=== PATIENT | male | born 1945 | race Caucasian/White ===

== ENCOUNTER 2023-08-03 13:18 | Emergency (ER) | payer MEDICARE, OTHER, SELFPAY ==
--- NOTE | 2023-08-03 15:14 | ED.GENMED ---
History of Present Illness
General
Chief Complaint: Musculo-Skeletal Complaint
Source: patient
Exam Limitations: none
Time Seen by Provider: 08/03/23 13:38
Nursing documentation reviewed up to this point in time: agreed with
Travel History
Have you had any contact with someone who has COVID-19?: No
Do you have any symptoms of coronavirus? Fever > 100 degrees, chills, cough, shortness of breath, sore throat, loss of taste or smell, muscle aches, or headache?: No
History of Present Illness
History of Present Illness:
78-year-old male with past medical history of hyperlipidemia presenting to the emergency department today with concerns of left-sided heel discomfort ongoing for the past few days denies specific inciting event. Irritation is down to the posterior
portion of the left heel. He claims that he has had some knee issues and has been following with orthopedics from this and has been favoring the left leg since. Denies fevers nausea vomiting or additional concerns.
Past History
Past History
ED Past Medical History: Asthma, Hypercholesterolemia and Other (Acute influenza with hypoxemia May 2018)
ED Past Surgical History: None
Social History
Tobacco: Non-smoker
Alcohol: None
Drug: None
Personal:
Living: with family
Employment: Retired
Family History
Family History: Other (Several family members with atrial fibrillation); Negative CAD
Review of Systems
Review of Systems
Allergies reviewed?: Yes
All Other Systems: ROS reviewed and negative except as documented in HPI and ROS
Phy Exam
Physical Exam
Physical Exam:
GENERAL: Alert , in no apparent distress
EYE: pupils equal and reactive
NECK: Supple, no significant adenopathy.
ENT: o/p clr, mmm.
CARDIAC: Regular rate and rhythm .
LUNGS: Clear breath sounds bilaterally, no acute respiratory distress, no wheezes/rales/rhonchi
ABDOMEN: Soft, without focal tenderness, no r/g, no cvat
NEUROLOGICAL: Alert and oriented, no focal neuro deficits
SKIN: Warm and dry, skin intact.
MUSCULOSKELETAL: Swelling to the left posterior ankle at the insertion point of the Achilles. Increased discomfort with significant dorsiflexion, well perfused.
PSYCH: Normal and appropriate interaction.
Course
Orders/Labs/Results
Orders:
Orders
08/03/23 13:23
Heel, Left 2 View [CR Heel/os Calcis - Left 2 Vw*] Urgent
Comment:
Reason For Exam: pain
Vital Signs
Initial and Last Documented VS:
Initial Vital Signs
Temp Pulse Resp Pulse Ox
98.2 F 96 18 97
08/03/23 13:21 08/03/23 13:21 08/03/23 13:21 08/03/23 13:21
Last Documented Vital Signs
Temp Pulse Resp Pulse Ox
98.2 F 96 18 97
08/03/23 13:21 08/03/23 13:21 08/03/23 13:21 08/03/23 13:21
MDM/Problems Addressed
MDM/Problems Addressed:
78-year-old male presenting to the emergency department today with concerns of left-sided posterior heel discomfort over the past few days without specific inciting event. Here he has discomfort to the posterior heel at the insertion of the
Achilles. Symptoms appear to be consistent with Achilles tendinopathy. X-ray was read by me and shows a posterior calcaneal bone spur. Patient's ankle was wrapped but otherwise stable for outpatient follow-up return precautions given.
*Critical Care Note
Total Time (30-74mins, 75-104mins- exclusive of procedures): Not Applicable
ED Attending Note
-
Portions of this chart may have been created with voice recognition software.� Occasional wrong word or��sound alike� substitutions may have occurred due to the inherent limitations of voice recognition software.
Discharge Plan
Departure
Patient Disposition: Home (Routine Discharge)
Date of Disposition: 08/03/23
Time of Disposition: 15:14
Patient with high blood pressure during this ER visit?: No
Condition: Good
Covid-19: Not Applicable
Discharge Problem:
Achilles tendinitis, Bone spur of posterior portion of calcaneus
Instructions: Achilles Tendinopathy (DC), Achilles Tendinopathy Exercises
Prescriptions:
New
prednisone 20 mg tablet
40 mg PO DAILY 3 Days Qty: 6 0RF
naproxen 500 mg tablet
500 mg PO BID PRN (Reason: Pain) Qty: 14 0RF
No Action
albuterol sulfate [Ventolin HFA] 90 MCG/PUFF HFA aerosol inhaler
1 puff inhalation DAILY
budesonide-formoterol [Symbicort] 1 PUFF HFA aerosol inhaler
2 puff inhalation R BID
ipratropium-albuterol 3 ML solution for nebulization
3 ml inhalation R Q4HPRN PRN (Reason: shortness of breath) 0RF
amoxicillin-pot clavulanate 1 TABLET tablet
1 tab PO Q12 Qty: 10 0RF
prednisone 10 MG tablet
10 mg PO .TAPER Qty: 50 0RF
Rx Instructions:
Take 40mg daily x5days,
30mg daily x5days, 20mg daily x5days, 10 mg daily x5 days
famotidine 20 MG tablet
20 mg PO BID Qty: 28 0RF
Rx Instructions:
Take 20 mg twice a day for 14 days
ascorbic acid (vitamin C) [Vitamin C] 500 MG tablet
1,000 mg PO BID Qty: 56 0RF
Rx Instructions:
Take 1,000 mg twice a day for 14 days
aspirin 81 MG tablet,chewable
81 mg PO DAILY Qty: 14 0RF
Rx Instructions:
Take 81 mg daily for 14 days
zinc sulfate 220 MG capsule
220 mg PO DAILY Qty: 14 0RF
Rx Instructions:
Take 220 mg daily for 14 days
cholecalciferol (vitamin D3) 1,000 UNITS tablet
2,000 units PO DAILY Qty: 28 0RF
Rx Instructions:
Take 2,000 units daily for 14 days
melatonin 5 MG tablet
5 mg PO HS Qty: 14 0RF
Rx Instructions:
Take 5 mg daily at bedtime for 14 days
prednisone 10 MG tablet
10 mg PO .TAPER Qty: 30 0RF
Rx Instructions:
Take 40mg daily x3days, 30mg daily x3days,
20mg daily x3days, 10mg daily x3days.
Referrals:
Papo Handy MD [Family Provider] -
Kaushal Genao MD [Active] - Follow up in 1 week
Activity Restrictions/Additional Instructions:
You came to the emergency department today with concerns of irritation to the posterior portion of your left heel. This is likely an Achilles tendinopathy. Please rest ice compress and elevate to help with symptoms follow-up closely with
orthopedics. Return to the emergency department for any worsening, new or concerning symptoms.
Interventions
Interventions:
*Risk Screen - Suicide Last Done: 08/03/23 13:21
*General Assessment Last Done: 08/03/23 13:21
*Neglect/Abuse Screening Last Done: 08/03/23 13:21
*ED COVID-19 Vaccine History Last Done: 08/03/23 13:21
Discharge Date and Time
Print Language: [id number]
[2023-08-03] MEDS: DELTASONE 40 MG PO (15:21)
== END 2023-08-03 15:35 | disposition home or self-care (01) ==
LOC: EMR 13:18
PROVIDERS: EMERGENCY PHYSICIAN Emergency Medicine; FAMILY PHYSICIAN Family Medicine
DX: M76.62 Achilles tendinitis, left leg (principal); M77.32 Calcaneal spur, left foot; E78.00 Pure hypercholesterolemia, unspecified; J45.909 Unspecified asthma, uncomplicated
CPT/HCPCS: 99283; 73650

== ENCOUNTER → 2023-09-03 11:29 | Outpatient (REF) | payer MEDICARE, OTHER, SELFPAY | LOC: REG 11:29 | PROVIDERS: ATTENDING PHYSICIAN Nurse Practitioner Family | DX: R05.9 Cough, unspecified (principal); J45.40 Moderate persistent asthma, uncomplicated | CPT/HCPCS: 71046; 87070; 87071; 87205 ==

== ENCOUNTER 2023-09-21 11:23 | Emergency (ER) | payer MEDICARE, OTHER, SELFPAY ==
[2023-09-21 11:25] VITALS: BP 136/76
[2023-09-21 12:08] VITALS: BP 134/73
--- NOTE | 2023-09-21 12:37 | ED.GENMED ---
History of Present Illness
<Carlyn Ramon [employer]ENTING [employer]S INSTRUCTOR - Last Filed: 09/22/23 08:39>
General
Chief Complaint: Breathing Problem
Source: patient
Exam Limitations: none
Time Seen by Provider: 09/21/23 12:13
Nursing documentation reviewed up to this point in time: agreed with
Travel History
Have you had any contact with someone who has COVID-19?: No
Do you have any symptoms of coronavirus? Fever > 100 degrees, chills, cough, shortness of breath, sore throat, loss of taste or smell, muscle aches, or headache?: No
History of Present Illness
History of Present Illness:
78-year-old male with history of asthma, HLD states he has been fighting a cough for the past 3 weeks. Initially saw his PCP Dr. Papo Handy about 2 weeks ago and was put on a prednisone taper and Levaquin x 5 days, Albuterol, started to improve
but then got worse again, saw PCP again one week ago, placed on another prednisone taper which he finished yesterday. Saw PCP again today, no improvement in cough so sent here for evaluation.
Pt states cough non productive but feels gurgling in upper chest and feels if he could cough it up it would help but all that happens is he has this weak cough once or twice then it goes away. This routine occurs every few minutes. He has been
sleeping through the night.
Denies f/c/n/v/d/c. Appetite good.
Past History
<Carlyn Ramon PARENTING SK[employer]S INSTRUCTOR - Last Filed: 09/22/23 08:39>
Past History
ED Past Medical History: Asthma, Hypercholesterolemia and Other (Acute influenza with hypoxemia May 2018)
ED Past Surgical History: None
Social History
Tobacco: Non-smoker
Alcohol: None
Drug: None
Personal:
Living: with family
Employment: Retired
Family History
Family History: Other (Several family members with atrial fibrillation); Negative CAD
Review of Systems
<Carlyn Ramon, PARENTING SKILLS INSTRUCTOR - Last Filed: 09/22/23 08:39>
Review of Systems
Allergies reviewed?: Yes
All Other Systems: ROS reviewed and negative except as documented in HPI and ROS
Constitutional: Denies fever
Respiratory: Reports cough; Denies trouble breathing
Cardiac: Denies chest pain
ABD/GI: Denies abdominal pain or nausea
Musculoskeletal: Reports no symptoms
Skin: Reports no symptoms
Neurological: Reports no symptoms
Phy Exam
<Carlyn V. Day, PARENTING SKILLS INSTRUCTOR - Last Filed: 09/22/23 08:39>
Physical Exam
Physical Exam:
GENERAL: No acute distress. A&Ox3.
CONSTITUTIONAL: Afebrile.
EYES: Clear, conjunctivae normal
ENMT: moist mucus membranes, Pharynx nl
RESPIRATORY: Regular respirations, nonlabored, lungs clear. Coarse junky cough, upper airway gurgling sounds which clear momentarily after 1 or 2-week coughs. Unable to expectorate
CARDIOVASCULAR: Regular rate and rhythm, no murmurs, no rubs.
GI: Soft, nontender, normal BS
MUSCULOSKELETAL: Moves with ease. Well perfused.
SKIN: Warm, dry, pink
PSYCH: Normal mood and affect. Well kept, interactive and appropriate
NEUROLOGIC: Awake, alert and oriented. No focal neurological deficits
Scores
<Carlyn V. Yenny, PARENTING SKILLS INSTRUCTOR - Last Filed: 09/22/23 08:39>
Heart Failure Risk
Heart Failure Risk Score: Not Applicable
Course
<Carlyn V. Day, PARENTING SKILLS INSTRUCTOR - Last Filed: 09/22/23 08:39>
Orders/Labs/Results
Orders:
Orders
09/21/23 11:28
EKG [Electrocardiogram (*1)] Urgent
Reason for Study: Shortness of Breath
EKG- Treatment ONCE
09/21/23 12:23
CR Chest - 2 Views Urgent
Comment:
Reason For Exam: Coughing
09/21/23 12:24
Ipratropium/Albuterol Sulfate [Duoneb] 3 ml INH R NOW STA
09/21/23 12:35
Complete Blood Count/With Diff Urgent
Comprehensive Metabolic Panel Urgent
09/21/23 15:02
COVID-19 Antigen Urgent
Source: Nasal Swab
09/21/23 16:02
D-Dimer Urgent
0.9% Sodium Chloride 1000 ml [Nss] 1,000 ml IV BOLUS
Ondansetron Injectable [Zofran] 4 mg IV NOW STA
09/21/23 17:42
CT Chest W/o Iv Contrast Urgent
Comment:
Reason For Exam: persistent cough
09/21/23 19:33
Amoxicillin 875 mg/Clav 125 mg [Augmentin 875 mg/125 mg] 1 tablet PO NOW STA
Abnormal Lab Results
09/21/23
12:35
WBC 16.4 H 10^3/uL
(4.8-10.8)
RBC 4.38 L 10^6/uL
(4.70-6.10)
MCV 95.4 H fL
(80.0-94.0)
MCH 34.0 H pg
(27.0-31.0)
Abs Immat Gran (auto) 0.2 H 10^3/uL
(0-0.05)
Absolute Neuts (auto) 14.4 H 10^3/uL
(1.4-6.5)
Absolute Lymphs (auto) 0.4 L 10^3/uL
(1.2-3.4)
Absolute Monos (auto) 1.3 H 10^3/uL
(0.1-0.6)
Immature Gran % 1.2 H %
(0-0.5)
Neutrophils % 87.6 H %
(42.2-75.2)
Lymphocytes % 2.7 L %
(20.5-51.1)
Sodium 134 L mmol/L
(135-145)
Glucose 180 H mg/dl
(70-99)
Total Bilirubin 2.2 H mg/dl
(0.2-1.3)
Total Protein 6.2 L g/dl
(6.3-8.2)
09/21/23 12:35
09/21/23 12:35
Vital Signs
Initial and Last Documented VS:
Initial Vital Signs
Temp Pulse Resp BP Pulse Ox
98.3 F 101 20 136/76 91
09/21/23 11:25 09/21/23 11:25 09/21/23 11:25 09/21/23 11:25 09/21/23 11:25
Last Documented Vital Signs
Temp Pulse Resp BP Pulse Ox
98.2 F 88 30 132/80 98
09/21/23 19:18 09/21/23 19:18 09/21/23 17:45 09/21/23 19:18 09/21/23 19:59
<Wesley Magana MD - Last Filed: 09/21/23 20:18>
Orders/Labs/Results
Orders:
Orders
09/21/23 11:28
EKG [Electrocardiogram (*1)] Urgent
Reason for Study: Shortness of Breath
EKG- Treatment ONCE
09/21/23 12:23
CR Chest - 2 Views Urgent
Comment:
Reason For Exam: Coughing
09/21/23 12:24
Ipratropium/Albuterol Sulfate [Duoneb] 3 ml INH R NOW STA
09/21/23 12:35
Complete Blood Count/With Diff Urgent
Comprehensive Metabolic Panel Urgent
09/21/23 15:02
COVID-19 Antigen Urgent
Source: Nasal Swab
09/21/23 16:02
D-Dimer Urgent
0.9% Sodium Chloride 1000 ml [Nss] 1,000 ml IV BOLUS
Ondansetron Injectable [Zofran] 4 mg IV NOW STA
09/21/23 17:42
CT Chest W/o Iv Contrast Urgent
Comment:
Reason For Exam: persistent cough
09/21/23 19:33
Amoxicillin 875 mg/Clav 125 mg [Augmentin 875 mg/125 mg] 1 tablet PO NOW STA
Abnormal Lab Results
09/21/23
12:35
WBC 16.4 H 10^3/uL
(4.8-10.8)
RBC 4.38 L 10^6/uL
(4.70-6.10)
MCV 95.4 H fL
(80.0-94.0)
MCH 34.0 H pg
(27.0-31.0)
Abs Immat Gran (auto) 0.2 H 10^3/uL
(0-0.05)
Absolute Neuts (auto) 14.4 H 10^3/uL
(1.4-6.5)
Absolute Lymphs (auto) 0.4 L 10^3/uL
(1.2-3.4)
Absolute Monos (auto) 1.3 H 10^3/uL
(0.1-0.6)
Immature Gran % 1.2 H %
(0-0.5)
Neutrophils % 87.6 H %
(42.2-75.2)
Lymphocytes % 2.7 L %
(20.5-51.1)
Sodium 134 L mmol/L
(135-145)
Glucose 180 H mg/dl
(70-99)
Total Bilirubin 2.2 H mg/dl
(0.2-1.3)
Total Protein 6.2 L g/dl
(6.3-8.2)
09/21/23 12:35
09/21/23 12:35
Vital Signs
Initial and Last Documented VS:
Initial Vital Signs
Temp Pulse Resp BP Pulse Ox
98.3 F 101 20 136/76 91
09/21/23 11:25 09/21/23 11:25 09/21/23 11:25 09/21/23 11:25 09/21/23 11:25
Last Documented Vital Signs
Temp Pulse Resp BP Pulse Ox
98.2 F 88 30 132/80 98
09/21/23 19:18 09/21/23 19:18 09/21/23 17:45 09/21/23 19:18 09/21/23 19:59
<Carlyn Ramon NP - Last Filed: 09/22/23 08:39>
MDM/Problems Addressed
Differential Diagnosis Includes:
Asthma, PNA
MDM/Problems Addressed:
78-year-old male with history of asthma, HLD states he has been fighting a cough for the past 3 weeks. Initially saw his PCP Dr. Papo Handy about 2 weeks ago and was put on a prednisone taper and Levaquin x 5 days, Albuterol, started to improve
but then got worse again, saw PCP again one week ago, placed on another prednisone taper which he finished yesterday. Saw PCP again today, no improvement in cough so sent here for evaluation.
Pt states cough non productive but feels gurgling in upper chest and feels if he could cough it up it would help but all that happens is he has this weak cough once or twice then it goes away. This routine occurs every few minutes. He has been
sleeping through the night.
Denies f/c/n/v/d/c. Appetite good.
Tested COVID-negative at doctor's office this morning
EKG: NSR
Pulse ox 91% room air, no tachypnea, no dyspnea
CBC: WBC 16.4, most likely because patient has been on steroids for the past 3 weeks
CMP: No clinically significant abnormality
CXR: NAD
2:45 PM
No change after Duoneb
Consulted Dr. Magana who is evaluating patient
Patient ambulated up and down hallway, pulse ox maintained at 94% room air, ambulated with ease, denied SOB
Will check d dimer
7:00 PM
D dimer WNL. Will obtain plain Chest CT for possible occult pneumonia
Plain chest CT radiology report read: Patchy airspace opacity suspicious for pneumonia in the posterior basilar aspect of the bilateral lower lobes, left greater than right D-dimer negative
Pt offered admission or DC with Augmentin and return if worse. He and chose to go home.
Rx for Augmentin sent to his pharmacy
<Carlyn Ramon NP - Last Filed: 09/22/23 08:39>
*EKG
EKG Intrepretation Date: 09/21/23
Interpretation: normal
Rate: normal
Rhythm: sinus
[place]: normal axis
Interval: normal interval
QRS Pattern: normal QRS
Ischemia: no ischemia
*Critical Care Note
Total Time (30-74mins, 75-104mins- exclusive of procedures): Not Applicable
ED Attending Note
<Carlyn Ramon NP - Last Filed: 09/22/23 08:39>
-
Portions of this chart may have been created with voice recognition software.� Occasional wrong word or��sound alike� substitutions may have occurred due to the inherent limitations of voice recognition software.
<Wesley Magana MD - Last Filed: 09/21/23 20:18>
ED Attending Note
Patient seen and examined by attending physician: Yes
ED Attending Note:
Patient presents to ED secondary to 3-week history of intermittent cough along with shortness of breath with exertion. Denies fever or chills. Denies chest pain. Denies nausea, vomiting, or diarrhea. Patient has been evaluated by his primary
care physician, and has already finished course of antibiotics. Patient is currently taking daily dose of steroids, as also prescribed by his primary care physician. Of note, patient's spouse tested positive for COVID-19 2 weeks ago. Patient has
number of test at home, and has been negative for COVID-19.
Physical Exam
General: no apparent distress, not acutely ill. afebrile
Head: nc/at. eomi
Neck: supple. no meningeal signs.
Heart: s1/s2 regular rate and rhythm, no murmur. equal radial pulses.
Lungs: no acute respiratory distress. diminnished breath sounds bilaterally
Abdomen: normal bowel sounds. not tender.
Neuro: alert and oriented. no focal neurological deficits
Skin: no rash
Psychiatric: well kept. interactive and cooperative
Extremities: no edema. no calf tenderness.
History, exam, and CT chest consistent with pneumonia. Patient is able to ambulate in ED independently, without acute distress nor desaturation. Discussed treatment options, including potential admission to the hospital. However, patient feels
comfortable going home at this time. As patient already completed levofloxacin without improvement symptoms, he will be started on Augmentin, with recommendation to follow-up PCP as an outpatient, or return to ED with worsening symptoms..
Discharge Plan
Departure
Patient Disposition: Home (Routine Discharge)
Date of Disposition: 09/21/23
Time of Disposition: 19:27
Patient with high blood pressure during this ER visit?: No
Condition: Fair
Discharge Problem:
Pneumonia
Instructions: Pneumonia
Prescriptions:
New
amoxicillin-pot clavulanate 875-125 mg tablet
1 tab PO BID Qty: 14 0RF
No Action
albuterol sulfate [Ventolin HFA] 90 MCG/PUFF HFA aerosol inhaler
1 puff inhalation DAILY
budesonide-formoterol [Symbicort] 1 PUFF HFA aerosol inhaler
2 puff inhalation R BID
ipratropium-albuterol 3 ML solution for nebulization
3 ml inhalation R Q4HPRN PRN (Reason: shortness of breath) 0RF
amoxicillin-pot clavulanate 1 TABLET tablet
1 tab PO Q12 Qty: 10 0RF
prednisone 10 MG tablet
10 mg PO .TAPER Qty: 50 0RF
Rx Instructions:
Take 40mg daily x5days,
30mg daily x5days, 20mg daily x5days, 10 mg daily x5 days
famotidine 20 MG tablet
20 mg PO BID Qty: 28 0RF
Rx Instructions:
Take 20 mg twice a day for 14 days
ascorbic acid (vitamin C) [Vitamin C] 500 MG tablet
1,000 mg PO BID Qty: 56 0RF
Rx Instructions:
Take 1,000 mg twice a day for 14 days
aspirin 81 MG tablet,chewable
81 mg PO DAILY Qty: 14 0RF
Rx Instructions:
Take 81 mg daily for 14 days
zinc sulfate 220 MG capsule
220 mg PO DAILY Qty: 14 0RF
Rx Instructions:
Take 220 mg daily for 14 days
cholecalciferol (vitamin D3) 1,000 UNITS tablet
2,000 units PO DAILY Qty: 28 0RF
Rx Instructions:
Take 2,000 units daily for 14 days
melatonin 5 MG tablet
5 mg PO HS Qty: 14 0RF
Rx Instructions:
Take 5 mg daily at bedtime for 14 days
prednisone 10 MG tablet
10 mg PO .TAPER Qty: 30 0RF
Rx Instructions:
Take 40mg daily x3days, 30mg daily x3days,
20mg daily x3days, 10mg daily x3days.
prednisone 20 mg tablet
40 mg PO DAILY 3 Days Qty: 6 0RF
naproxen 500 mg tablet
500 mg PO BID PRN (Reason: Pain) Qty: 14 0RF
Referrals:
Papo Handy MD [Family Provider] - Call in 1-3 days for appt
Activity Restrictions/Additional Instructions:
As we discussed, you have pneumonia. I sent a prescription to your pharmacy for the antibiotic Augmentin to take twice a day for 7 days.
Inform your doctor today's visit and the fact you have pneumonia
Return here immediately for trouble breathing, fever, vomiting or feeling sicker in any way.
Interventions
Interventions:
*Risk Screen - Suicide Last Done: 09/21/23 11:25
*General Assessment Last Done: 09/21/23 19:30
*Neglect/Abuse Screening Last Done: 09/21/23 19:59
ED- Fall Risk Assessment Last Done: 09/21/23 19:59
*ED COVID-19 Vaccine History Last Done: 09/21/23 11:25
*Nursing Disposition Last Done: 09/21/23 19:30
ED- Cardiac Assessment Last Done: 09/21/23 19:59
ED- Pulmonary Assessment Last Done: 09/21/23 19:59
Discharge Date and Time
Discharge Date/Time: 09/21/23 20:16
Print Language: TRISTANIAN
[2023-09-21 12:47] LABS: % Basophils 0.4 % (0-2); % Eosinophils 0.1 % (0-6); % Immature Granulocytes 1.2 % (0-0.5); % Lymphocytes 2.7 % (20.5-51.1); % Neutrophils 87.6 % (42.2-75.2); Absolute Basophils 0.1 10^3/uL (0-0.2); Absolute Immature Granulocytes 0.2 10^3/uL (0-0.05); Absolute Lymphocytes 0.4 10^3/uL (1.2-3.4); Absolute Monocytes 1.3 10^3/uL (0.1-0.6); Absolute Neutrophils 14.4 10^3/uL (1.4-6.5); Hematocrit 41.8 % (39.0-52.0); Hemoglobin 14.9 g/dL (13.0-18.0); Mean Corp Hgb Conc. 35.6 g/dL (33.0-37.0); Mean Corpuscular Volume 95.4 fL (80.0-94.0); Mean Platelet Volume 9.4 fL (7.4-10.4); Nucleated Red Blood Cells % 0 % (-); Platelet Count 153 10^3/uL (130-400); Red Blood Cell Count 4.38 10^6/uL (4.70-6.10); Red Cell Dist. Width 13.6 % (11.5-14.5); White Blood Cell Count 16.4 10^3/uL (4.8-10.8)
[2023-09-21 13:00] VITALS: BP 128/66
[2023-09-21 13:23] LABS: ALT (SGPT) 24 U/L (0-50); AST (SGOT) 24 U/L (17-59); Albumin 3.6 g/dl (3.5-5.0); Alkaline Phosphatase 59 U/L (38-126); Blood Urea Nitrogen 15 mg/dl (9-20); Calcium 8.7 mg/dl (8.4-10.2); Carbon Dioxide 26 mmol/L (22-30); Chloride 100 mmol/L (98-107); Glucose 180 mg/dl (70-99); Potassium 4.4 mmol/L (3.5-5.1); Sodium 134 mmol/L (135-145); Total Bilirubin 2.2 mg/dl (0.2-1.3); Total Protein 6.2 g/dl (6.3-8.2); eGFR > 60.00
[2023-09-21] MEDS: DUONEB 3 ML INH (13:35)
[2023-09-21 15:42] LABS: COVID-19 Antigen Negative (Negative)
[2023-09-21 16:52] LABS: D-Dimer < 0.27 ug/mlFEU (0.00-0.50)
[2023-09-21 19:18] VITALS: BP 132/80
[2023-09-21] MEDS: AUGMENTIN 875 MG/125 MG 1 TABLET PO (19:49)
== END 2023-09-21 20:16 | disposition home or self-care (01) ==
LOC: EMR 11:23
PROVIDERS: Registered Nurse; EMERGENCY PHYSICIAN Emergency Medicine; FAMILY PHYSICIAN Family Medicine
DX: J18.9 Pneumonia, unspecified organism (principal); Z11.52 Encounter for screening for COVID-19; E78.00 Pure hypercholesterolemia, unspecified; J45.909 Unspecified asthma, uncomplicated; M10.9 Gout, unspecified; Z79.82 Long term (current) use of aspirin
CPT/HCPCS: 99284; 94640; 71046; 71250; 80053; 85025; 85379; 87811; 93005

== ENCOUNTER → 2024-01-27 07:27 | Outpatient (REF) | payer MEDICARE, OTHER, SELFPAY | LOC: HWRAD 07:27 | PROVIDERS: ATTENDING PHYSICIAN Internal Medicine Critical Care Medicine; FAMILY PHYSICIAN Family Medicine | DX: R06.02 Shortness of breath (principal); Z87.01 Personal history of pneumonia (recurrent); J45.40 Moderate persistent asthma, uncomplicated; J98.4 Other disorders of lung | CPT/HCPCS: 71250 ==

== ENCOUNTER 2024-08-29 23:40 | Inpatient (IN) | payer MEDICARE, OTHER, SELFPAY ==
[2024-08-29] VITALS (8 sets, daily range): BP systolic 140–181; BP diastolic 82–103; BMI 34.9
[2024-08-29 18:37] LABS: % Basophils 0.3 % (0-2); % Eosinophils 0.7 % (0-6); % Immature Granulocytes 1.1 % (0-0.5); % Lymphocytes 4.8 % (20.5-51.1); % Monocytes 8.5 % (1.7-9.3); % Neutrophils 84.6 % (42.2-75.2); Absolute Eosinophils 0.1 10^3/uL (0-0.7); Absolute Immature Granulocytes 0.1 10^3/uL (0-0.05); Absolute Lymphocytes 0.6 10^3/uL (1.2-3.4); Hematocrit 46.8 % (39.0-52.0); Hemoglobin 16.3 g/dL (13.0-18.0); Mean Corp Hgb Conc. 34.8 g/dL (33.0-37.0); Mean Corpuscular Hgb 32.5 pg (27.0-31.0); Mean Corpuscular Volume 93.4 fL (80.0-94.0); Mean Platelet Volume 9.3 fL (7.4-10.4); Nucleated Red Blood Cells % 0 % (-); Platelet Count 166 10^3/uL (130-400); Red Blood Cell Count 5.01 10^6/uL (4.70-6.10); Red Cell Dist. Width 13.3 % (11.5-14.5); White Blood Cell Count 11.9 10^3/uL (4.8-10.8)
[2024-08-29 18:48] LABS: Lactic Acid 1.2 mmol/L (0.7-2.0)
[2024-08-29 18:50] LABS: ALT (SGPT) 20 U/L (0-50); AST (SGOT) 21 U/L (17-59); Alkaline Phosphatase 76 U/L (38-126); Blood Urea Nitrogen 17 mg/dl (9-20); Carbon Dioxide 27 mmol/L (22-30); Chloride 104 mmol/L (98-107); Glucose 158 mg/dl (70-99); Potassium 4.2 mmol/L (3.5-5.1); Sodium 136 mmol/L (135-145); Total Bilirubin 1.5 mg/dl (0.2-1.3); Total Protein 6.8 g/dl (6.3-8.2); eGFR > 60.00
--- NOTE | 2024-08-29 18:59 | ED.GENMED ---
History of Present Illness
General
Chief Complaint: Breathing Problem
Source: patient
Exam Limitations: none
Time Seen by Provider: 08/29/24 18:48
Nursing documentation reviewed up to this point in time: agreed with
History of Present Illness
History of Present Illness:
Patient with history of asthma, presents to ED secondary to increasing shortness of breath with intermittent cough, along with fever and decreased appetite, despite continued use of nebulizer at home. Patient reports fever of 102 last night.
Denies vomiting or diarrhea. Denies headache. Denies sore throat. Denies back pain. Denies leg pain or swelling. Denies recent travel. Denies recent surgery. Denies sick contact. Patient does report having had similar symptoms last year,
when he was diagnosed with pneumonia.
Past History
Past History
ED Past Medical History: Asthma, Hypercholesterolemia and Other (Acute influenza with hypoxemia May 2018)
ED Past Surgical History: None
Social History
Tobacco: Non-smoker
Alcohol: None
Drug: None
Personal:
Living: with family
Employment: Retired
Family History
Family History: Other (Several family members with atrial fibrillation); Negative CAD
Review of Systems
Review of Systems
Allergies reviewed?: Yes
All Other Systems: ROS reviewed and negative except as documented in HPI and ROS
Constitutional: Reports fever
EENT: Reports no symptoms
Respiratory: Reports cough and trouble breathing
Cardiac: Reports no symptoms
ABD/GI: Reports no symptoms; Denies vomiting or diarrhea
: Reports no symptoms
Musculoskeletal: Reports no symptoms
Skin: Reports no symptoms
Neurological: Reports no symptoms
Phy Exam
Physical Exam
Physical Exam:
Physical Exam
General: mild respiratory distress, not acutely ill.
Head: nc/at. eomi
Neck: supple. no meningeal signs.
Heart: s1/s2 regular rate and rhythm
Lungs: mild respiratory distress. rhonchi/wheezing bilaterally
Abdomen: normal bowel sounds. not tender.
Neuro: alert and oriented x 3. no focal neurological deficits
Skin: no rash
Psychiatric: well kept. interactive and cooperative
Extremities: no edema. no calf tenderness.
Scores
Heart Failure Risk
Heart Failure Risk Score: Not Applicable
Course
Orders/Labs/Results
Orders:
Orders
08/29/24 Breakfast
Regular
At Your Request: Full Participation
Liquid Modification: Thin Liquids
08/29/24 18:15
CR Chest - 2 Views Urgent
Comment:
Reason For Exam: SOB
08/29/24 18:25
COVID-19 Antigen Urgent
Source: Nasal Swab
Complete Blood Count/With Diff Urgent
Comprehensive Metabolic Panel Urgent
Lactic Acid Urgent
Blood Culture Urgent
SARITHA Source: Blood/Venous
Specimen Description:
Influenza A+B Rapid Molecular Urgent
SARITHA Source: Nasal Swab
Specimen Description:
08/29/24 18:58
Ipratropium/Albuterol Sulfate [Duoneb] 3 ml INH R NOW STA
08/29/24 20:08
D-Dimer Urgent
08/29/24 20:44
CT Chest W/o Iv Contrast Urgent
Comment:
Reason For Exam: fever/cough/hypoxia
08/29/24 23:08
Azithromycin 500 mg/250 ml [Zithromax Infusion] 500 mg in 250 ml IV NOW
CefTRIAXone [Rocephin] 1,000 mg IV NOW STA
08/29/24 23:25
Labetalol HCl [Trandate] 10 mg IV NOW STA
08/29/24 23:26
Sterile Water [Sterile Water For Injection] 10 ml .ROUTE .STK-MED ONE
08/29/24 23:29
Admit/Transfer Patient As Directed
Co-Sign Provider:
Level of Care: Inpatient admission
Assign to:: Telemetry
Physician / Group: joan
Diagnosis: acute hypoxic respiratory failure
Reason for Telemetry: Arrhythmia
Date to Stop Telemetry: 09/01/24
Time to Stop Telemetry: 11:00
Reason for Hospitalization: acute hypoxic respiratory failure
Expected length of stay greater than two midnights?: Yes
ELOS- Estimated Length of Stay in days: 3
I certify the patient meets the requirements for IP care: Yes
PRN Pain Medication Management As Directed
May give lesser potent ordered pain med per pt: Yes
preference::
Protocol:: Medication orders for pain may be administered in a
manner that supports deferring to patient preference
when the pt is:
- Requesting an ordered lesser potent pain medication.
Least to most potent pain medications are defined
as: acetaminophen < NSAID < tramadol < opioids
(morphine, oxycodone, hydromorphone).
- Requesting a lesser dose of the same medication IF
ORDERED.
- Requesting a less intrusive route of administration
if both routes are prescribed by the provider (PO <
IV).
08/29/24 23:30
Code Status As Directed
Resuscitation Status: Full Code
08/29/24 23:56
Guaifenesin [Mucinex] 600 mg PO Q12
Labetalol HCl [Trandate] 10 mg IV Q6HPRN PRN
08/29/24 23:56
Respiratory Culture/Gram Stain Urgent
SARITHA Source: Sputum
Specimen Description:
Date Specimen was Collected: 08/30/24
Time Specimen was Collected: 22:51
Strep pneumoniae Antigen Routine
SARITHA Source: Urine
Specimen Description:
08/30/24 02:26
0.9% Sodium Chloride 1000 ml [Nss] 1,000 ml IV 80 mls/hr
Acetaminophen [Tylenol] 650 mg PO Q4HPRN PRN
08/30/24 02:26
Activity As Directed
Activity Level: Out of Bed-Early Mobility
Intake/ Output As Directed
Frequency: Per unit guidelines
Vital Signs As Directed
Frequency: Per unit guidelines
Weight As Directed
Frequency: Once
Comment: on admission
O2 Therapy [RESP] Routine
Titrate/Wean O2 to maintain O2 sat greater than (%): 95
Special Instructions: Wean as tolerated
DX Deep Vein Thrombosis Video Routine
08/30/24 06:11
Legionella Urinary Antigen Routine
SARITHA Source: Urine
Specimen Description:
08/30/24 06:47
Complete Blood Count/No Diff IN AM
08/30/24 08:00
Allopurinol [Zyloprim] 300 mg PO DAILY
Budesonide/Formoterol 80/4.5 [Symbicort 80/4.5 Mcg Inhaler] 2 puff INH R BID
08/30/24 18:00
Enoxaparin Sodium [Lovenox] 40 mg SC QPM
08/30/24 20:00
Doxycycline [Vibramycin] 100 mg PO BID
08/30/24 22:00
CefTRIAXone [Rocephin] 1,000 mg IV Q24H
08/31/24 07:26
Complete Blood Count/No Diff IN AM
09/01/24 11:00
DC Protocol for Telemetry ONCE
Abnormal Lab Results
08/29/24 08/29/24
18:25 20:08
WBC 11.9 H 10^3/uL
(4.8-10.8)
MCH 32.5 H pg
(27.0-31.0)
Abs Immat Gran (auto) 0.1 H 10^3/uL
(0-0.05)
Absolute Neuts (auto) 10.0 H 10^3/uL
(1.4-6.5)
Absolute Lymphs (auto) 0.6 L 10^3/uL
(1.2-3.4)
Absolute Monos (auto) 1.0 H 10^3/uL
(0.1-0.6)
Immature Gran % 1.1 H %
(0-0.5)
Neutrophils % 84.6 H %
(42.2-75.2)
Lymphocytes % 4.8 L %
(20.5-51.1)
D-Dimer 0.95 H ug/mlFEU
(0.00-0.50)
Glucose 158 H mg/dl
(70-99)
Total Bilirubin 1.5 H mg/dl
(0.2-1.3)
08/29/24 18:25
08/29/24 18:25
Vital Signs
Initial and Last Documented VS:
Initial Vital Signs
Temp Pulse Resp BP Pulse Ox
98.4 F 115 28 140/95 91
08/29/24 18:11 08/29/24 18:11 08/29/24 18:11 08/29/24 18:11 08/29/24 18:11
Last Documented Vital Signs
Temp Pulse Resp BP Pulse Ox
97.6 F 92 20 157/87 96
08/31/24 15:00 08/31/24 15:00 08/31/24 15:00 08/31/24 15:00 08/31/24 15:00
MDM/Problems Addressed
MDM/Problems Addressed:
CT chest ordered due to clinical concern for pneumonia despite normal chest x-ray.
CT chest report reviewed and discussed with patient. Patient will be admitted for IV antibiotics and continue oxygen supplementation, as during short ambulation, patient noted to be quite dyspneic with desaturation (86%).
*Critical Care Note
Total Time (30-74mins, 75-104mins- exclusive of procedures): Not Applicable
ED Attending Note
-
Portions of this chart may have been created with voice recognition software.� Occasional wrong word or��sound alike� substitutions may have occurred due to the inherent limitations of voice recognition software.
Discharge Plan
Departure
Patient Disposition: Admit
Date of Disposition: 08/29/24
Time of Disposition: 23:09
Admit to: Telemetry
Presentation/result/management discussed w/ accepting MD/DO: Hospitalist
Discharge Problem:
Pneumonia
Interventions
Interventions:
*Risk Screen - Suicide Last Done: 08/30/24 02:42
*General Assessment Last Done: 08/29/24 18:11
*Neglect/Abuse Screening Last Done: 08/29/24 19:27
*ED- Fall Risk Assessment Last Done: 08/29/24 19:27
*ED COVID-19 Vaccine History Last Done: 08/30/24 02:42
*Nursing Disposition Last Done: 08/30/24 02:24
ED- Cardiac Assessment Last Done: 08/29/24 19:27
ED- Pulmonary Assessment Last Done: 08/29/24 19:27
Discharge Date and Time
Discharge Date/Time: 08/30/24 02:25
[2024-08-29 19:09] LABS: COVID-19 Antigen Negative (Negative)
[2024-08-29] MEDS: DUONEB 3 ML INH (19:21)
[2024-08-29 20:32] LABS: D-Dimer 0.95 ug/mlFEU (0.00-0.50)
--- NOTE | 2024-08-29 23:12 | HPS.HSE ---
Family Physician
-
Family Physician: Papo Handy
Chief Complaint
-
sob, cough
History of Present Illness
80 wade old patient with history of asthma, presents to ED secondary to increasing shortness of breath with intermittent cough for past few days. last night he spiked fever upto 102, he was nauseous. he felt lightheaded today. the cough is non
productive. he was taking Mucinex with no relief in his symptoms. denied MARTIN or syncope. denied chest pain. denied abdominal pain, diarrhea. denied dysuria or hematuria.
chest Ct with pneumonia. he is requiring 3l of oxygen. patient received Zithromax, ceftriaxone and nebs in ER. admitting for further management.
Medical History
Past Medical History
Past Medical History: Reports Other
Additional Past Medical History:
HLD
asthma
sleep apnea
pneumothorax
restrictive lung disease
Past Surgical History: Reports None
Social History
Tobacco: Non-smoker
Alcohol: Occasional
Drug: None
Family History
Family History: Not pertinent
Allergies / Home Medications
Allergies reflects when Allergies were last updated in [employer].
Home Medications with original date entered in [employer]
Allergy/Medication List:
Allergies
Allergy/AdvReac Type Severity Reaction Status Date / Time
No Known Allergies Allergy Verified 08/29/24 18:11
Home Medications
albuterol sulfate 90 mcg/actuation aerosol inhaler (Ventolin HFA) 1 puff inhalation DAILY 05/23/18
budesonide-formoterol HFA 160 mcg-4.5 mcg/actuation aerosol inhaler (Symbicort) 2 puff inhalation R BID 05/23/18
amoxicillin 875 mg-potassium clavulanate 125 mg tablet 1 tab PO Q12 ##10 06/02/18
ipratropium 0.5 mg-albuterol 3 mg (2.5 mg base)/3 mL nebulization soln 3 ml inhalation R Q4HPRN PRN shortness of breath 06/02/18
prednisone 10 mg tablet 10 mg PO .TAPER #50 tabs 06/02/18
ascorbic acid (vitamin C) 500 mg tablet (Vitamin C) 1,000 mg (2 x 500 mg) PO BID #56 tabs 01/22/21
aspirin 81 mg chewable tablet 81 mg PO DAILY #14 tabs 01/22/21
cholecalciferol (vitamin D3) 25 mcg (1,000 unit) tablet 2,000 units PO DAILY #28 tabs 01/22/21
famotidine 20 mg tablet 20 mg PO BID #28 tabs 01/22/21
melatonin 5 mg tablet 5 mg PO HS #14 tabs 01/22/21
zinc sulfate 50 mg zinc (220 mg) capsule 220 mg (4.4 x 50 mg zinc (220 mg)) PO DAILY #14 caps 01/22/21
prednisone 10 mg tablet 10 mg PO .TAPER #30 tabs 02/08/21
naproxen 500 mg tablet 500 mg PO BID PRN Pain #14 tabs 08/03/23
prednisone 20 mg tablet 40 mg (2 x 20 mg) PO DAILY 3 days #6 tabs 08/03/23
amoxicillin 875 mg-potassium clavulanate 125 mg tablet 1 tab PO BID #14 tabs 09/21/23
Review of Systems
-
Constitutional: Reports Fever and Fatigue
EENT: Reports No Symptoms
Respiratory: Reports Cough and Trouble Breathing
Cardiac: Reports No Symptoms
Abdomen/GI: Reports No Symptoms
: Reports No Symptoms
Musculoskeletal: Reports No Symptoms
Skin: Reports No Symptoms
Neurological: Reports No Symptoms
Endocrine: Reports No Symptoms
Hematologic/Lymphatic: Reports No Symptoms
Psych: Reports No Symptoms
Physical Exam
Vital Signs
Vital Signs
Temp Pulse Resp BP Pulse Ox
98.4 F 103 26 181/99 95
08/29/24 18:11 08/29/24 22:30 08/29/24 22:00 08/29/24 22:00 08/29/24 22:30
Physical Exam
General: Well Developed, Well Nourished and No Apparent Distress
HEENT: NormoCephalic, Moist mucous membranes and Atraumatic
Respiratory: Decreased Breath Sounds
Cardiac: S1/S2 and Regular Rhythm; No Murmur or Rub
GI: Soft, Non Tender, Non Distended and Normal Bowel Sounds; No Organomegaly
Rectal: Deferred by Provider
Musculoskeletal: No Clubbing, No Cyanosis and No Edema
Skin: No Rash
Neuro: AO x 3 and Nonfocal/grossly intact
Psych: Calm
Laboratory Results
-
08/29/24 18:25
08/29/24 18:25
Laboratory Results
Lactic Acid 1.2 mmol/L (0.7-2.0) 08/29/24 18:25
Total Bilirubin 1.5 mg/dl (0.2-1.3) H 08/29/24 18:25
AST 21 U/L (17-59) 08/29/24 18:25
ALT 20 U/L (0-50) 08/29/24 18:25
Alkaline Phosphatase 76 U/L (38-126) 08/29/24 18:25
Data Reviewed
-
Diagnostic Radiology: Report Reviewed by me
CT Scan: Report Reviewed by me
Lab Data: Labs Reviewed by me
Impression/Plan
-
#acute hypoxic respiratory failure/sepsis secondary to pneumonia
- Sepsis as evident by wbc 11.9, tachypnea and tachycardia
-covid,flu negative
-chest CT with Parenchymal airspace opacity within the left lower lobe and the posterior lingula, new since CT examination of January 27, 2024, appearance highly suggestive of pneumonia. Trace amount of posterior pleural effusion.
-chest x ray with No evidence of active cardiopulmonary disease.
-blood culture sent from ER
-Patient requiring 3 L of ox
-Continue supplemental oxygen to keep sat greater than 95
-Wean as tolerated
-IV ceftriaxone and Doxy continue
-Obtain strep pneumonia and urine Legionella
#hypertensive urgency
-BP elevated in ER
-labetalol prn added.
# History of gout
- Allopurinol continued
# History of asthma
- Trelegy from home continued
# DVT prophylaxis
- Lovenox subcu
# CODE STATUS
- Full code
--- NOTE | 2024-08-29 23:27 | W.PN.UPDATE ---
Update Note
Progress Note Update
This is an addendum to H&P written by Debra Christian on 08/29/2024. Patient seen and examined independently with MICROBIOLOGY TEACHER.
79-year-old male past medical history of asthma, hypercholesteremia, presenting with shortness of breath, cough and fever and decreased appetite. Fever 102 last night.
Patient tachycardic up to 115 here. Blood pressure 180 currently.
Labs show leukocytosis. D-dimer 0.95 COVID and influenza negative.
Chest x-ray shows no active cardiopulmonary disease. CT PE shows parenchymal airspace opacity within the left lower lobe and posterior lingula.
Patient with sepsis secondary to left lower lobe pulmonary acquired pneumonia. Patient requiring 3 L oxygen.
Check blood cultures, IV fluids. Ceftriaxone/azithromycin.
[2024-08-29] MEDS: ROCEPHIN 1000 MG IV (23:31)
[2024-08-29] MEDS: ZITHROMAX INFUSION 250 IV (23:42)
[2024-08-30] VITALS (10 sets, daily range): BP systolic 139–185; BP diastolic 73–99; PULSE 92; O2SAT 94; BMI 33.3
[2024-08-30] MEDS: MUCINEX PO (02:08)
--- NOTE | 2024-08-30 02:40 | PTCARENOTE ---
Pt arrived to room 415-02. Pt ambulated from stretcher to bed x1 assist. Pt AAOx3. Pt on 3LNC. Pt oriented to room, call hudson placed within reach. Bed alarm in place.
[2024-08-30] MEDS: MELATONIN 5 MG PO (02:50)
[2024-08-30] MEDS: TRANDATE 10 MG IV (02:50)
[2024-08-30] MEDS: NSS 1000 IV ×2 (02:50→14:08)
--- NOTE | 2024-08-30 07:24 | W.PN.HOSP.TC ---
Today's Communication/Plan
-
Continue antibiotics
Wean oxygen as tolerated
Continue to monitor on telemetry
Assessment / Plan
Assessment / Plan
Physical Exam
General: Well Developed, Well Nourished and No Apparent Distress
HEENT: NormoCephalic, Moist mucous membranes and Atraumatic
Respiratory: Decreased Breath Sounds
Cardiac: S1/S2 and Regular Rhythm
GI: Soft, Non Tender, Non Distended and Normal Bowel Sounds
Musculoskeletal: No Cyanosis and No Edema
Skin: Warm. Dry.
Neuro: AAO x 3 and Nonfocal/grossly intact
Psych: Calm
Assessment/Plan
79-year-old male past medical history of asthma, hypercholesteremia, presenting with shortness of breath, dry cough and fever and decreased appetite. Fever 102 the night prior to presentation. Patient tachycardic up to 115 here around the time of
admission. D-dimer 0.95 COVID and influenza negative. Chest x-ray showed no active cardiopulmonary disease. CT PE showed parenchymal airspace opacity within the left lower lobe and posterior lingula. Patient with sepsis secondary to left lower
lobe pulmonary acquired pneumonia. Patient requiring 3 L oxygen (does not use oxygen at home).
#Acute hypoxic respiratory failure/sepsis secondary to LLL pneumonia
#Leukocytosis
-Sepsis as evident by wbc 11.9, tachypnea and tachycardia
-COVID and Flu negative
-Chest CT with Parenchymal airspace opacity within the left lower lobe and the posterior lingula, new since CT examination of January 27, 2024, appearance highly suggestive of pneumonia. Trace amount of posterior pleural effusion; chest x ray with
No evidence of active cardiopulmonary disease.
-Follow blood cultures
-Patient requiring 3 L of oxygen here; patient does not need any oxygen at home
-Continue supplemental oxygen -- wean as tolerated
-IV ceftriaxone and Doxy continue
-Strep Pneumonia Antigen and Urine Legionella Antigen negative
#Elevated D-dimer -- suspected secondary to pneumonia/sepsis
-No PE on CT Chest
-Check lower extremity venous ultrasound (ordered)
#Hypertensive urgency
-Amlodipine small dose started
-BP elevated in ER ~180 mmHg systolic
-labetalol prn added.
#History of gout
- Allopurinol continued
#History of asthma
- Trelegy (or equivalent) from home continued
#History of Restrictive Lung Disease
#Sleep Apnea
- Wears CPAP at home?
#Hyperlipidemia
#Obesity
DVT Prophylaxis: Lovenox
CODE STATUS: Full Code
Anticipated Discharge: > 48 hours
Subjective/Interval History
-
Date of Service: August 30, 2024
Patient was seen and examined. He reported that his cough and shortness of breath have improved.
Objective Data
-
Labs:
Laboratory Results
08/30/24
06:47
WBC Pending
Hgb Pending
Hct Pending
Plt Count Pending
Vital Signs:
Vital Signs
Temp Pulse Resp BP Pulse Ox
98.3 F 94 18 151/99 95
08/30/24 02:34 08/30/24 04:36 08/30/24 02:34 08/30/24 04:36 08/30/24 02:34
I&O
08/29/24 08/30/24 08/31/24
06:59 06:59 06:59
Intake Total 240 / 240
Output Total 400 / 400
Balance -160 / -160
[2024-08-30] MEDS: SYMBICORT 80/4.5 MCG INHALER 2 PUFF INH ×2 (07:27→19:32)
[2024-08-30 07:44] LABS: Hematocrit 42.9 % (39.0-52.0); Hemoglobin 14.7 g/dL (13.0-18.0); Mean Corp Hgb Conc. 34.3 g/dL (33.0-37.0); Mean Corpuscular Hgb 32.5 pg (27.0-31.0); Mean Corpuscular Volume 94.9 fL (80.0-94.0); Mean Platelet Volume 9.4 fL (7.4-10.4); Platelet Count 157 10^3/uL (130-400); Red Blood Cell Count 4.52 10^6/uL (4.70-6.10); Red Cell Dist. Width 13.3 % (11.5-14.5); White Blood Cell Count 11.4 10^3/uL (4.8-10.8)
[2024-08-30] MEDS: ZYLOPRIM 300 MG PO (09:11)
[2024-08-30] MEDS: MUCINEX 600 MG PO ×2 (09:11→20:02)
--- NOTE | 2024-08-30 10:30 | CM ---
Initial assessment completed. Patient is a 80 wade old patient with history of asthma, presents to ED secondary to increasing shortness of breath with intermittent cough. Patient currently on 3L O2, does not use home O2.
Patient resides w/ spouse, son and grandson in a 3STH- no steps. Patient and spouse reside on the first floor. Independent in all areas. Shower chair, grab bar and w/c in the home from spouse previously needing. No SNF/HC hx reported.
Address, point of contact and insurance verified
PCP: Papo Handy
[facility]
Plan: Home, no needs likely
--- NOTE | 2024-08-30 12:20 | PTOTSP ---
Speech Language Pathology
Pt seen for clinical bedside swallow evaluation. Pt stated no significant swallowing issues at baseline, but did endorse occasional difficulty with 'incoordination.' Pt described this as difficulty getting swallow initiated, but denied any globus
sensation or signs of aspiration. P.O. trials of regular solids and thin liquids provided. Adequate mastication, bolus formation, and A-P transit noted with no oral residue. No overt signs of aspiration. Per OP pulmonology notes from March
2023, there was mention of consideration for swallow evaluation if needed. Given current PNA, hx of PNA, and pulm notes, recommend instrumental swallowing assessment at this time.
Recommend:
(1) VSE 08/31 to rule out dysphagia
(2) Continue regular solids/thin liquids at this time
(3) General aspiration precautions
(4) Meds as tolerated
(5) GRILL ASSOCIATE to continue to follow
[2024-08-30] MEDS: NORVASC 2.5 MG PO (15:35)
[2024-08-30] MEDS: LOVENOX 40 MG SC (17:48)
[2024-08-30] MEDS: VIBRAMYCIN 100 MG PO (20:02)
[2024-08-30] MEDS: STERILE WATER FOR INJECTION 10 ML IV (21:29)
[2024-08-30] MEDS: ROCEPHIN 1000 MG IV (21:29)
[2024-08-31] MEDS: NSS 1000 IV (02:52)
[2024-08-31 03:04] VITALS: BP 160/97
[2024-08-31 07:00] VITALS: BP 159/94
[2024-08-31] MEDS: SYMBICORT 80/4.5 MCG INHALER 2 PUFF INH (07:34)
--- NOTE | 2024-08-31 07:50 | W.PN.HOSP.TC ---
Today's Communication/Plan
-
Discharge today
Assessment / Plan
Assessment / Plan
Physical Exam
General: Well Developed, Well Nourished and No Apparent Distress
HEENT: NormoCephalic, Moist mucous membranes and Atraumatic
Respiratory: Decreased Breath Sounds
Cardiac: S1/S2 and Regular Rhythm
GI: Soft, Non Tender, Non Distended and Normal Bowel Sounds
Musculoskeletal: No Cyanosis and No Edema
Skin: Warm. Dry.
Neuro: AAO x 3 and Nonfocal/grossly intact
Psych: Calm
Assessment/Plan
79-year-old male past medical history of asthma, hypercholesteremia, presenting with shortness of breath, dry cough and fever and decreased appetite. Fever 102 the night prior to presentation. Patient tachycardic up to 115 here around the time of
admission. D-dimer 0.95 COVID and influenza negative. Chest x-ray showed no active cardiopulmonary disease. CT PE showed parenchymal airspace opacity within the left lower lobe and posterior lingula. Patient with sepsis secondary to left lower
lobe pulmonary acquired pneumonia. Patient initially required 3 L oxygen (does not use oxygen at home) --> but then was able to transitioned to room air with good oxygen saturations.
#Acute hypoxic respiratory failure/sepsis secondary to LLL pneumonia
#Leukocytosis
-Patient improving significantly on current antibiotics
-Chest CT with Parenchymal airspace opacity within the left lower lobe and the posterior lingula, new since CT examination of January 27, 2024, appearance highly suggestive of pneumonia. Trace amount of posterior pleural effusion; chest x ray with
No evidence of active cardiopulmonary disease.
-Blood cultures with no growth to date
-NOW ON ROOM AIR
-IV ceftriaxone and Doxy continued inpatient --> on discharge, continue antibiotics (Cefpodoxime 200 mg BID and Doxycycline 100 mg BID) through 09/04/24 (first dose of antibiotics was on 08/29/24)
-Strep Pneumonia Antigen and Urine Legionella Antigen negative
#Elevated D-dimer -- suspected secondary to pneumonia/sepsis
-Suspected from infection
-No PE on CT Chest
-Low extremity ultrasound with no DVT
#Hypertensive urgency
-Amlodipine small dose started
-BP elevated in ER ~180 mmHg systolic
-Low sodium diet
-Follow-up with PCP
#History of gout
- Allopurinol continued
#History of asthma
- Trelegy (or equivalent) from home continued
#History of Restrictive Lung Disease
#Sleep Apnea
- Wears CPAP at home?
#Hyperlipidemia
#Obesity
DVT Prophylaxis: Lovenox
CODE STATUS: Full Code
More than 30 minutes spent in discharge including
Final examination of the patient
Summarizing hospital stay
Instructions for continuing care to all relevant caregivers
Preparation of discharge records, prescriptions, and referral forms
Total time spent (in minutes): 37
Anticipated Discharge: Today
Subjective/Interval History
-
Date of Service: August 31, 2024
Patient was seen and examined. He denied any significant cough, shortness of breath or chest pain. He was walking around the floor fine, with no issues. He stated that he would like to go home today.
Objective Data
-
Labs:
Laboratory Results
08/31/24
07:26
WBC Pending
Hgb Pending
Hct Pending
Plt Count Pending
Sodium Pending
Potassium Pending
Chloride Pending
Carbon Dioxide Pending
BUN Pending
Creatinine Pending
Glucose Pending
Calcium Pending
Vital Signs:
Vital Signs
Temp Pulse Resp BP Pulse Ox
97.6 F 87 16 159/94 95
08/31/24 07:00 08/31/24 07:36 08/31/24 07:36 08/31/24 07:00 08/31/24 07:36
I&O
08/30/24 08/31/24 09/01/24
06:59 06:59 06:59
Intake Total 240 / 240 480 / 480
Output Total 400 / 400
Balance -160 / -160 480 / 480
[2024-08-31 08:01] LABS: Hematocrit 44.2 % (39.0-52.0); Hemoglobin 15.1 g/dL (13.0-18.0); Mean Corp Hgb Conc. 34.2 g/dL (33.0-37.0); Mean Corpuscular Hgb 32.4 pg (27.0-31.0); Mean Corpuscular Volume 94.8 fL (80.0-94.0); Mean Platelet Volume 9.3 fL (7.4-10.4); Platelet Count 178 10^3/uL (130-400); Red Blood Cell Count 4.66 10^6/uL (4.70-6.10); Red Cell Dist. Width 13.2 % (11.5-14.5); White Blood Cell Count 9.1 10^3/uL (4.8-10.8)
[2024-08-31] MEDS: NORVASC 2.5 MG PO (08:29)
[2024-08-31] MEDS: VIBRAMYCIN 100 MG PO (08:30)
[2024-08-31] MEDS: ZYLOPRIM 300 MG PO (08:30)
[2024-08-31] MEDS: MUCINEX 600 MG PO (08:30)
[2024-08-31 08:44] LABS: Blood Urea Nitrogen 14 mg/dl (9-20); Carbon Dioxide 26 mmol/L (22-30); Chloride 106 mmol/L (98-107); Estimated Creatinine Clearance 94 ml/min; Glucose 160 mg/dl (70-99); Magnesium 1.8 mg/dl (1.6-2.3); Sodium 137 mmol/L (135-145); eGFR > 60.00
--- NOTE | 2024-08-31 11:10 | PTOTSP ---
Speech Language Pathology
VIDEOFLUOROSCOPIC SWALLOWING EXAMINATION (VSE) completed. Oropharyngeal swallow WNL. No penetration/aspiration or any pharyngeal residue noted.
Recommend:
(1) Continue regular solids/thin liquids
(2) General aspiration precautions
(3) Meds as tolerated
(4) VENDING MACHINE COIN COLLECTOR to sign off. Please reconsult as indicated
[2024-08-31 12:07] VITALS: BP 173/92
[2024-08-31 15:00] VITALS: BP 157/87
--- NOTE | 2024-08-31 15:37 | CM ---
Patient stable for d/c today
Met w/ patient bedside, agreeable to d/c
IMM verbally reviewed, copy given to patient, copy on chart
Spouse or son will transport
No CM needs identified at this time
Plan: Home, no needs
== END 2024-08-31 16:52 | disposition home or self-care (01) | DRG 871 ==
LOC: 4 WEST ACU 23:40
PROVIDERS: Registered Nurse; Student in an Organized Health Care Education/Training Program; ADMITTING PHYSICIAN Hospitalist; ATTENDING PHYSICIAN Hospitalist; EMERGENCY PHYSICIAN Emergency Medicine; FAMILY PHYSICIAN Family Medicine; REFERRING PHYSICIAN Internal Medicine Critical Care Medicine
DX: A41.9 Sepsis, unspecified organism (principal); J96.01 Acute respiratory failure with hypoxia; J45.909 Unspecified asthma, uncomplicated; E66.9 Obesity, unspecified; I16.0 Hypertensive urgency; M10.9 Gout, unspecified; E78.00 Pure hypercholesterolemia, unspecified; J98.4 Other disorders of lung; G47.30 Sleep apnea, unspecified; Z79.82 Long term (current) use of aspirin; Z79.52 Long term (current) use of systemic steroids; Z11.52 Encounter for screening for COVID-19; Z68.33 Body mass index [BMI] 33.0-33.9, adult; Z87.01 Personal history of pneumonia (recurrent)
CPT/HCPCS: 71046; 71250; 74230; 80048; 80053; 83605; 83735; 85025; 85027; 85379; 87040; 87070; 87205; 87449; 87502; 87811; 87899; 92610; 92611; 93970; 94640; 97162; 99285

== ENCOUNTER 2024-09-19 10:14 | Emergency (ER) | payer MEDICARE, OTHER, SELFPAY ==
[2024-09-19 10:26] VITALS: BP 184/102
[2024-09-19 10:58] LABS: % Basophils 0.8 % (0-2); % Eosinophils 0.7 % (0-6); % Immature Granulocytes 3.8 % (0-0.5); % Lymphocytes 8.3 % (20.5-51.1); % Monocytes 5.4 % (1.7-9.3); Absolute Basophils 0.1 10^3/uL (0-0.2); Absolute Eosinophils 0.1 10^3/uL (0-0.7); Absolute Immature Granulocytes 0.4 10^3/uL (0-0.05); Absolute Lymphocytes 0.8 10^3/uL (1.2-3.4); Absolute Monocytes 0.5 10^3/uL (0.1-0.6); Absolute Neutrophils 7.7 10^3/uL (1.4-6.5); Hemoglobin 16.8 g/dL (13.0-18.0); Mean Corp Hgb Conc. 34.3 g/dL (33.0-37.0); Mean Corpuscular Hgb 32.1 pg (27.0-31.0); Mean Corpuscular Volume 93.7 fL (80.0-94.0); Mean Platelet Volume 8.9 fL (7.4-10.4); Nucleated Red Blood Cells % 0 % (-); Platelet Count 158 10^3/uL (130-400); Red Blood Cell Count 5.23 10^6/uL (4.70-6.10); Red Cell Dist. Width 13.2 % (11.5-14.5); White Blood Cell Count 9.5 10^3/uL (4.8-10.8)
[2024-09-19 11:19] LABS: ALT (SGPT) 23 U/L (0-50); AST (SGOT) 25 U/L (17-59); Albumin 4.1 g/dl (3.5-5.0); Alkaline Phosphatase 64 U/L (38-126); Blood Urea Nitrogen 17 mg/dl (9-20); Calcium 9.3 mg/dl (8.4-10.2); Carbon Dioxide 29 mmol/L (22-30); Chloride 105 mmol/L (98-107); Glucose 184 mg/dl (70-99); Potassium 4.2 mmol/L (3.5-5.1); Sodium 137 mmol/L (135-145); Total Protein 7.1 g/dl (6.3-8.2); eGFR > 60.00
[2024-09-19 11:20] VITALS: BP 161/89
[2024-09-19 11:31] LABS: Troponin I < 0.012 ng/ml
--- NOTE | 2024-09-19 11:44 | ED.GENMED ---
History of Present Illness
General
Chief Complaint: Blood Pressure Problem
Time Seen by Provider: 09/19/24 11:24
History of Present Illness
History of Present Illness:
Note:
CHIEF COMPLAINT(S)
High blood pressure
HISTORY OF PRESENT ILLNESS
The patient is a 79-year-old male who presents with concerns of high blood pressure. Approximately two weeks ago, the patient was hospitalized for bilateral pneumonia, during which he was noted to have elevated blood pressure readings. Upon
discharge, he was prescribed amlodipine at a dose of 2.5 milligrams. The patient reports starting the medication immediately after hospital discharge. He has been monitoring his blood pressure at home using a blood pressure monitor and describes
feeling 'a little bit of a buzz,' along with cold-like symptoms. However, he denies experiencing new chest pain or significant difficulty breathing, although he notes known asthma that intermittently affects his breathing. The patient also mentions
historically having normal blood pressure readings, typically around 120/80 mmHg. He was advised by his physician to come to the hospital due to elevated readings at home despite no acute distress.
EXTERNAL RECORDS REVIEWED
The blood tests from triage, including electrolytes, heart enzymes, and a blood count, were reviewed and found to be normal. The electrocardiogram showed a normal sinus rate of 86 beats per minute with no signs of ischemia.
CHRONIC MEDICAL CONDITIONS SIGNIFICANTLY AFFECTING CARE
The patient reports a history of asthma.
REVIEW OF SYSTEMS
- Cardiovascular: Reports high blood pressure, no chest pain.
- Respiratory: Asthma with some difficulty breathing, but no new symptoms.
- General: Feeling 'a little bit of a buzz' and cold-like symptoms.
- Neurological: No stroke-like symptoms.
PHYSICAL EXAM
- Cardiovascular: Heart sounds regular with no murmurs or tachycardia.
- Respiratory: Lungs are clear with no rattling or rubbing noises.
- General: Well-appearing in no apparent distress.
- Neuro: AO x 4, moves all extremities freely
- Nursing notes reviewed and vital signs reviewed.
PROBLEM LIST
Acute:
- Elevated blood pressure post-recent hospitalization for bilateral pneumonia.
Chronic:
- Asthma
PLAN
- The patients amlodipine dose will be increased to 5 milligrams daily.
- Instruct the patient to check blood pressure two to three times a week to monitor trends, rather than daily, to avoid unnecessary anxiety.
- Ensure follow-up with the primary care physician within the next month for reassessment and further medication management.
- Discharge when paperwork is complete.
DIFFERENTIAL DIAGNOSIS
The Differential Diagnosis includes, in no particular order and is not limited to:
1. Essential hypertension
2. White coat hypertension
3. Medication-induced hypertension
4. Anxiety-related blood pressure elevation
Disposition:
SUMMARY OF ENCOUNTER
The patient, a 79-year-old male, was seen in the emergency department due to concerns about high blood pressure. Approximately two weeks prior, the patient was hospitalized for double pneumonia and noted to have elevated blood pressure readings.
Upon discharge, he was prescribed 2.5 mg amlodipine and began monitoring his blood pressure at home. Despite his historically normal blood pressure readings (~120/80 mmHg), recent measurements have been elevated, prompting his physician to advise an
ED visit. The patient experienced no chest pain or significant breathing difficulties, although he reported feeling 'a little bit of a buzz' and cold-like symptoms. His asthma condition has been intermittently affecting his breathing but no new
symptoms were present.
PLAN
The patients amlodipine dosage will be increased to 5 milligrams daily to manage hypertension. He is instructed to monitor his blood pressure two to three times weekly to track trends without inducing anxiety. Follow-up with the primary care
physician is recommended within the next month for reassessment and further medication management.
INDEPENDENT INTERPRETATION OF TESTS
My independent interpretation of blood tests, including electrolytes, heart enzymes, and blood count, is that they are normal. The electrocardiogram showed a normal sinus rate of 86 beats per minute without ischemic changes.
MEDICATION RECONCILIATION
The patients amlodipine dose is being increased from 2.5 mg to 5 mg daily.
MEDICAL DECISION MAKING
Number and Complexity of Problems Addressed: The chief complaint of elevated blood pressure, both acute and chronic, was assessed. The newly diagnosed hypertension after hospitalization for pneumonia warranted medication adjustment.
Data: The decision to increase amlodipine was based on home blood pressure monitoring and the patients response to the current dose. Normal lab results and ECG findings supported the decision.
Risk: While potential hospitalization was considered, outpatient management was deemed appropriate at this time. Social determinants of health were considered, including medication management and follow-up care requirements. The patients historical
normotensive state informed the treatment plan adjustments.
Past History
Past History
ED Past Medical History: Asthma, Hypercholesterolemia and Other (Acute influenza with hypoxemia May 2018)
ED Past Surgical History: None
Social History
Tobacco: Non-smoker
Alcohol: None
Drug: None
Personal:
Living: with family
Employment: Retired
Family History
Family History: Other (Several family members with atrial fibrillation); Negative CAD
Phy Exam
Physical Exam
Physical Exam:
.
Course
Orders/Labs/Results
Orders:
Orders
09/19/24 10:28
Electrocardiogram (*1) Urgent
Reason for Study: Palpitations
09/19/24 10:29
EKG- Treatment ONCE
09/19/24 10:48
Complete Blood Count/With Diff Urgent
Comprehensive Metabolic Panel Urgent
Troponin I Urgent
Abnormal Lab Results
09/19/24
10:48
MCH 32.1 H pg
(27.0-31.0)
Abs Immat Gran (auto) 0.4 H 10^3/uL
(0-0.05)
Absolute Neuts (auto) 7.7 H 10^3/uL
(1.4-6.5)
Absolute Lymphs (auto) 0.8 L 10^3/uL
(1.2-3.4)
Immature Gran % 3.8 H %
(0-0.5)
Neutrophils % 81.0 H %
(42.2-75.2)
Lymphocytes % 8.3 L %
(20.5-51.1)
Glucose 184 H mg/dl
(70-99)
09/19/24 10:48
09/19/24 10:48
Vital Signs
Initial and Last Documented VS:
Initial Vital Signs
Temp Pulse Resp BP Pulse Ox
98.0 F 87 16 184/102 98
09/19/24 10:26 09/19/24 10:26 09/19/24 10:26 09/19/24 10:26 09/19/24 10:26
Last Documented Vital Signs
Temp Pulse Resp BP Pulse Ox
98.0 F 81 18 161/89 95
09/19/24 10:26 09/19/24 11:30 09/19/24 11:30 09/19/24 11:20 09/19/24 11:30
*Critical Care Note
Total Time (30-74mins, 75-104mins- exclusive of procedures): Not Applicable
ED Attending Note
-
Portions of this chart may have been created with voice recognition software.� Occasional wrong word or��sound alike� substitutions may have occurred due to the inherent limitations of voice recognition software.
Discharge Plan
Departure
Patient Disposition: Home (Routine Discharge)
Date of Disposition: 09/19/24
Time of Disposition: 11:50
Patient with high blood pressure during this ER visit?: Yes
Discharge Problem:
Hypertension
Instructions: High Blood Pressure (DC)
Prescriptions:
New
amlodipine 5 mg tablet
5 mg PO DAILY Qty: 30 0RF
No Action
allopurinol 300 mg Tablet
300 mg PO DAILY
Trelegy Ellipta 100-62.5-25 mcg Blister With Device
1 inh INHALATION DAILY
guaifenesin 600 mg Tablet Extended Release 12hr
600 mg PO Q12 Qty: 14 0RF
amlodipine 2.5 mg Tablet
2.5 mg PO DAILY Qty: 30 1RF
cefpodoxime 200 mg tablet
200 mg PO Q12H Qty: 11 0RF
doxycycline hyclate 100 mg Capsule
100 mg PO BID Qty: 11 0RF
Interventions
Interventions:
*Risk Screen - Suicide Last Done: 09/19/24 10:26
*Neglect/Abuse Screening Last Done: 09/19/24 10:26
*Nursing Disposition Last Done: 09/19/24 12:21
Discharge Date and Time
Discharge Date/Time: 09/19/24 12:21
Print Language: AUSTRIAN
== END 2024-09-19 12:21 | disposition home or self-care (01) ==
LOC: EMR 10:14
PROVIDERS: EMERGENCY PHYSICIAN Emergency Medicine; FAMILY PHYSICIAN Family Medicine
DX: I10 Essential (primary) hypertension (principal); J45.909 Unspecified asthma, uncomplicated; E78.00 Pure hypercholesterolemia, unspecified; Z79.899 Other long term (current) drug therapy
CPT/HCPCS: 99284; 80053; 84484; 85025; 93005

== ENCOUNTER → 2024-11-01 09:30 | Outpatient (REF) | payer MEDICARE, OTHER, SELFPAY | LOC: RCS 09:30 | PROVIDERS: ATTENDING PHYSICIAN Family Medicine; OTHER PHYSICIAN Nurse Practitioner Family | DX: R60.9 Edema, unspecified (principal); J98.4 Other disorders of lung; J45.40 Moderate persistent asthma, uncomplicated; Z87.01 Personal history of pneumonia (recurrent) | CPT/HCPCS: 71250; 93306 ==

== ENCOUNTER → 2025-01-19 11:18 | Outpatient (REF) | payer MEDICARE, OTHER, SELFPAY | LOC: HWRCS 11:18 | PROVIDERS: ATTENDING PHYSICIAN Internal Medicine Cardiovascular Disease; FAMILY PHYSICIAN Family Medicine | DX: R06.02 Shortness of breath (principal) | CPT/HCPCS: 78452; 93017; A9500; J2785 ==